=== PATIENT | female | born 1995 | race Caucasian/White ===

== ENCOUNTER 2022-01-11 13:45 | Emergency (ER) | payer SELFPAY ==
[2022-01-11 15:13] LABS: #Lymphocytes 0.6 thou/uL (1.20-3.40); #Monocytes 0.6 thou/uL (0.11-0.59); #Neutrophils 11.2 thou/uL (1.40-6.50); %Basophils 0.1 % (0.0-1.0); %Eosinophils 0.4 % (0.0-10.0); %Lymphocytes 4.7 % (21.0-51.0); %Monocytes 4.6 % (0.0-10.0); %Neutrophils 90.2 % (42.0-75.0); Hemoglobin 11.9 g/dL (12.0-16.0); Mean Corpuscular HGB CONC 32.7 g/dL (32.0-36.0); Mean Corpuscular Hemoglobin 29.1 pg (27.0-31.0); Mean Platelet Volume 8.2 fL (7.4-10.4); Platelet Count 305 thou/uL (130-400); RBC Distribution Width 16.1 % (11.5-14.5); White Blood Cell (WBC) Count 12.4 thou/uL (4.8-10.8)
[2022-01-11 15:14] LABS: #Eosinphils 0.1 thou/uL (0.0-0.7)
[2022-01-11] MEDS ORDERED: Ondansetron PF 4 MG/2 ML Vial ONE (15:27)
[2022-01-11] MEDS ORDERED: Dicyclomine 20 MG/2 ML VIAL ONE (15:27)
[2022-01-11 15:43] LABS: ALT (SGPT) 14 U/L (8-55); AST (SGOT) 15 U/L (5-34); Albumin 4.5 g/dL (3.5-5.0); Alkaline Phosphatase 79 U/L (40-110); Anion Gap 17 mmol/L (10-20); BUN (Urea Nitrogen) 14 mg/dL (7.0-18.7); Bilirubin, Total 0.7 mg/dL (0.2-1.2); Calc. Creatinine Clearance 0 mL/min (70-130); Calcium 9.2 mg/dL (7.8-10.44); Carbon Dioxide 21 mmol/L (22-29); Chloride 105 mmol/L (98-107); Globulin 2.9 g/dL (2.4-3.5); Glucose 208 mg/dL (70-105); Lipase 13 U/L (8-78); Potassium 3.8 mmol/L (3.5-5.1); Protein, Total 7.4 g/dL (6.0-8.3); Sodium 139 mmol/L (136-145)
== END 2022-01-11 16:29 | disposition home or self-care (01) ==
LOC: ERS 13:45
DX: R11.2 Nausea with vomiting, unspecified (principal); R10.9 Unspecified abdominal pain; D64.9 Anemia, unspecified; F17.210 Nicotine dependence, cigarettes, uncomplicated
CPT/HCPCS: 36415; 76705; 80053; 83690; 85025; 96372; J0500; J2405

== ENCOUNTER 2022-01-13 11:34 | Emergency (ER) | payer SELFPAY ==
[2022-01-13] MEDS ORDERED: Ondansetron PF 4 MG/2 ML Vial ONE (12:07)
[2022-01-13 12:12] LABS: #Lymphocytes 1.3 thou/uL (1.20-3.40); #Neutrophils 8.7 thou/uL (1.40-6.50); %Basophils 0.3 % (0.0-1.0); %Eosinophils 0.2 % (0.0-10.0); %Monocytes 9.4 % (0.0-10.0); %Neutrophils 78.1 % (42.0-75.0); Mean Corpuscular HGB CONC 32.7 g/dL (32.0-36.0); Mean Corpuscular Hemoglobin 28.8 pg (27.0-31.0); Mean Corpuscular Volume 88.1 fL (78.0-98.0); Mean Platelet Volume 7.9 fL (7.4-10.4); Platelet Count 362 thou/uL (130-400); RBC Distribution Width 16.5 % (11.5-14.5); Red Blood Cell (RBC) Count 4.51 mill/uL (4.20-5.40); White Blood Cell (WBC) Count 11.1 thou/uL (4.8-10.8)
[2022-01-13 12:27] LABS: ALT (SGPT) 19 U/L (8-55); AST (SGOT) 17 U/L (5-34); Albumin 4.8 g/dL (3.5-5.0); Alkaline Phosphatase 73 U/L (40-110); Anion Gap 18 mmol/L (10-20); BUN (Urea Nitrogen) 17 mg/dL (7.0-18.7); Bilirubin, Total 0.8 mg/dL (0.2-1.2); Calc. Creatinine Clearance 0 mL/min (70-130); Calcium 9.5 mg/dL (7.8-10.44); Carbon Dioxide 24 mmol/L (22-29); Chloride 98 mmol/L (98-107); Globulin 3.3 g/dL (2.4-3.5); Glucose 124 mg/dL (70-105); Magnesium 1.9 mg/dL (1.6-2.6); Potassium 3.1 mmol/L (3.5-5.1); Protein, Total 8.1 g/dL (6.0-8.3); Sodium 137 mmol/L (136-145)
[2022-01-13 13:05] LABS: Bacteria/HPF None Seen HPF (None Seen); Bilirubin Negative (Negative); Blood, Urine Negative (Negative); Clarity Clear (Clear); Glucose, Urine (Dipstick) Normal (Negative); Ketone, Urine 100 mg/dL (Negative); Leukocyte Negative Leu/uL (Negative); Nitrite Negative (Negative); Protein, Urine (Dipstick) 100 mg/dL (Neg-Trace); RBC/HPF 0-3 HPF (0-3); Specific Gravity, Urine 1.029 (1.002-1.036); WBC/HPF 0-3 HPF (0-3); pH, Urine 8.5 (5.0-9.0)
[2022-01-13 13:06] LABS: Pregnancy Test - Urine (BHCG) Negative (Negative); Pregu Control Background? CLEAR/WHITE (CLR/WHITE); Pregu Control Bar Appear? YES (CONTROL BAR); Specific Gravity 1.029 (1.002-1.036)
[2022-01-13] MEDS ORDERED: Iopamidol-370 76% 500 ML 1 ML ONE (15:16)
[2022-01-13] MEDS ORDERED: Haloperidol Lactate 5 MG/ML VIAL ONE (15:23)
== END 2022-01-13 16:19 | disposition home or self-care (01) ==
LOC: ERS 11:34
DX: R11.2 Nausea with vomiting, unspecified (principal); R10.9 Unspecified abdominal pain; D64.9 Anemia, unspecified; J45.909 Unspecified asthma, uncomplicated; F17.210 Nicotine dependence, cigarettes, uncomplicated
CPT/HCPCS: 74177; 80053; 81003; 81015; 81025; 83735; 85025; 96374; 96375; J1630; J2405; Q9967